=== PATIENT | male | born 1990 | race Caucasian/White ===

== ENCOUNTER 2024-08-11 08:09 | Outpatient (OUT) | payer OTHER, SELFPAY ==
[2024-08-11 08:42] LABS: Basophils Absolute Auto 0.1 10^3/uL (0.0-0.1); Basophils Percent Auto 0.6 % (0.2-2.0); Eosinophils Absolute Auto 0.5 10^3/uL (0.0-0.7); Eosinophils Percent Auto 5.3 % (0.9-7.0); Hematocrit 42.4 % (42.0-54.0); Hemoglobin 14.5 g/dL (14.0-18.0); Immature Granulocytes Abs Auto 0.02 10^3/uL (0.00-0.03); Immature Granulocytes Pct Auto 0.2 % (0.0-0.5); Lymphocytes Absolute Auto 2.9 10^3/uL (1.2-3.8); Lymphocytes Percent Auto 33.3 % (20.5-60.0); Mean Corpuscular HGB Conc 34.2 g/dL (29.9-35.2); Mean Corpuscular Hemoglobin 27.9 pg (25.9-34.0); Mean Corpuscular Volume 81.7 fL (80.0-94.0); Mean Platelet Volume 10.4 fL (9.5-13.5); Monocytes Absolute Auto 0.6 10^3/uL (0.3-0.8); Monocytes Percent Auto 6.4 % (1.7-12.0); Neutrophils Absolute Auto 4.7 10^3/uL (1.4-6.5); Neutrophils Percent Auto 54.2 % (43.0-75.0); Platelet Count 293 10^3/uL (150-450); Red Blood Count 5.19 10^6/uL (4.70-6.10); Red Cell Distribution Width 12.8 % (11.0-15.0); White Blood Count 8.6 10^3/uL (4.0-11.0)
[2024-08-11 08:57] LABS: Estimated Average Glucose 108 mg/dL; Glycohemoglobin A1C 5.4 % (4.5-6.2)
[2024-08-11 08:58] LABS: Alanine Aminotransferase 28 U/L (16-63); Albumin Globulin Ratio 1.2; Albumin Level 3.8 g/dL (3.4-5.0); Alkaline Phosphatase 70 U/L (46-116); Anion Gap 8.6; Aspartate Amino Transferase 16 U/L (15-37); BUN Creatinine Ratio 13.6; Bilirubin Total 0.4 mg/dL (0.2-1.0); Calcium 8.5 mg/dL (8.5-10.1); Carbon Dioxide 30.4 mmol/L (21.0-32.0); Chloride 104 mmol/L (98-107); Chol HDL Ratio 4.5; Cholesterol 139 mg/dL (<=200); Estimated GFR (African America >60 (>=60 mL/min/1.73m^2); Estimated GFR (Non-African Ame >60 (>=60 mL/min/1.73m^2); Globulin 3.1 g/dL; Glucose 99 mg/dL (74-106); HDL Cholesterol 31 mg/dL (40-60); Sodium 139 mmol/L (136-145); Total Protein 6.9 g/dL (6.4-8.2); Triglycerides 232 mg/dL (<=150); VLDL CHOLESTEROL 46.4 mg/dL
== END 2024-08-11 08:10 | disposition home or self-care (01) ==
LOC: LAB 08:13
PROVIDERS: PCP Family Medicine; Visit Provider Family Medicine
DX: Z00.00 Encounter for general adult medical examination without abnormal findings (principal)
CPT/HCPCS: 36415; 80053; 80061; 83036; 85025

== ENCOUNTER 2024-09-03 00:11 | Emergency (ER) | payer OTHER, SELFPAY ==
[2024-09-03 00:22] VITALS: BP 141/99; PULSE 83; TEMP 36.7; O2SAT 95; BMI 34.0
--- NOTE | 2024-09-03 00:41 | ED_ITS ---
[facility] HPI - Extremity Injury (Upper) General Chief Complaint: Extremity Injury, Upper Stated Complaint: RIGHT HAND INJURY Time Seen by Provider: 09/03/24 00:25 Source: patient Mode of arrival: walk-in Limitations: no limitations History of Present Illness HPI narrative: The patient is a 34-year-old male who presents to the emergency department via personal vehicle to be evaluated for right hand and right wrist pain. Prior to arrival, the patient punched a solid wood door. Patient sustained pain to the middle finger at the metacarpal phalangeal joint. And he feels pain on the dorsal side of the mid wrist. He has no history of osteoporosis or osteopenia. No history of previous injury to this extremity. Patient did not take anything for pain upon arrival. Pain is moderate in severity. It does not radiate. It is dull and achy. Manipulating the hand or the wrist makes it worse. Nothing makes it better. The patient does have sensation that is intact to every finger. The patient is right hand when it MD complaint: injury to: Reports right Onset (ago): hour(s) (1) Other injuries: Reports none Hand dominance: right Place: Reports home Severity: moderate Relieving factors: Reports none Exacerbating factors: Reports movement of extremity Context: Reports direct blow Related Data Previous Rx's ?Medication ?Instructions ?Recorded hydrocodone 5 mg-acetaminophen 325 1 tab PO Q6H PRN pa in #12 tabs 09/03/24 mg tablet Allergies Allergy/AdvReac Type Severity Reaction Status Date / Time No Known Drug Allergies Allergy Verified 09/03/24 00:25 Opioid HPI Opioid Management Most Recent Pain and Opioid Data: Last Pain Scale 6 Today, 01:38 Last ED Pain Assessment Today, 01:38 Last MAR Pain Assessment Today, 01:01 Review of Systems ROS Narrative 10 Systems were reviewed, and unless not ed in the [facility], all other systems are reviewed, unremarkable, or noncontributory. Exam Narrative Exam Narrative: Prior to examining the patient, I have washed with hospital approved and provided Antiseptic Hand News Director and have also applied gloves.? Prior to touching the patient, I asked for consent to examine the patient.? General: Alert and oriented, well nourished, mild distress. Eye: PERRL, EOMI, normal conjunctiva. HENT: Normocephalic, normal hearing, moist oral mucosa, no scleral icterus Musculoskeletal: Decreased range of motion strength secondary to limitations of pain to the right hand and right wrist. There is no gross deformities appreciated. No swelling appreciated. Exquisite tenderness to light touch to the dorsum of the wrist and the metacarpophalangeal joint of the middle finger. Skin: Skin is warm, dry and pink, no rashes or lesions. Neurologic: Awake, alert, and oriented X3, CN II-XII intact. Psychiatric: Cooperative, appropriate mood and affect.? Following the conclusion of the examination, I have washed my hands thoroughly after removing examination gloves. Constitutional Vital Signs, click to edit/add: Last Vital Signs Temp 98.0 F 09/03/24 00:22 Pulse 83 09/03/24 00:22 Resp 18 09/03/24 00:22 BP 141/99 H 09/03/24 00:22 Pulse Ox 95 09/03/24 00:22 O2 Del Method Room Air 09/03/24 00:22 Course Course Hospital Course: Patient had an ice pack applied. He was given ibuprofen 600 mg by mouth. X-ray of the right wrist and right hand were ordered. Reevaluation(s) Reevaluation #1: Patient still having a lot of pain in his hand after the x-ray has returned. The patient asked for a splint. We do not have a splint available but patient was given an Favio wrap to help support his hand. We were also able to wrap the wrist. He should take ibuprofen 600 mg every 6-8 hours to help with the inflammation. But a prescription was sent to the pharmacy should he get worse. Vital Signs Vital signs: Vital Signs Temperature 98.0 F 09/03/24 00:22 Pulse Rate 83 09/03/24 00:22 Respiratory Rate 18 09/03/24 00:22 Blood Pressure 141/99 H 09/03/24 00:22 Pulse Oximetry 95 09/03/24 00:22 Oxygen Delivery Method Room Air 09/03/24 00:22 Temperature 98.0 F 09/03/24 00:22 Pulse Rate 83 09/03/24 00:22 Respiratory Rate 18 09/03/24 00:22 Blood Pressure 141/99 H 09/03/24 00:22 Pulse Oximetry 95 09/03/24 00:22 Oxygen Delivery Method Room Air 09/03/24 00:22 MDM - Extremity Injury (Upper) MDM Narrative Medical decision making narrative: Patient is a 34-year-old male who punched a solid wooden door with his right hand. This [id number] male is presenting for right hand and right wrist pain. Differential Diagnosis Differential diagnosis: Likely sprain and strain of wrist, fracture of wrist, finger sprain, dislocation of finger, Colles' fracture and fracture of hand Medical Records Attestation: I reviewed the patient's medical records. Imaging Data Right Hand: Attestation: I personally reviewed and interpreted this imaging study as follows: My impression: There is no evidence of any fracture, dislocation, or subluxation of the right hand. This was interpreted by me for the sake of disposition. Right wrist: Attestation: I personally reviewed and interpreted this imaging study as follows: My impression: No evidence of fracture, dislocation, subluxation. The x-rays were interpreted by me for sake of disposition. Discharge Plan Discharge Chief Complaint: Extremity Injury, Upper Clinical Impression: Contusion of hand, right, Right wrist sprain Patient Disposition: Home, Self-Care Time of Disposition Decision: 02:01 Condition: Good Mode of Transportation: Private Vehicle Prescriptions / Home Meds: New hydrocodone-acetaminophen 5-325 mg tablet 1 tab PO Q6H PRN (Reason: pain) Qty: 12 0RF Print Language: Gabonese Instructions: How to Use an Elastic Bandage (ED), Contusion in Adults (ED), Wrist Sprain (ED) Additional Instructions: Thank you for trusting me with your care today. Please ice, rest, elevate, and compress your right hand and wrist. An Favio wrap will do nicely to help immobilize that. Try not to do any heavy lifting, moving, twisting or repetitive movements to this extremity. You can take anti-inflammatories such as Motrin or Advil at home and you may supplement with the analgesic medication that was prescribed for you. Referrals: Vinod Wbeb MD [Primary Care Provider, Family Practice] - 1 week Discharge Date/Time: 09/03/24 02:21
--- NOTE | 2024-09-03 00:42 | PC.NURSE ---
this patient complains of right hand and right wrist pain onset 1 hour prior to arrival to this er dept. this patient add that he punched a wooded door
[2024-09-03] MEDS: IBUPROFEN 600 MG TABLET PO (01:01)
--- NOTE | 2024-09-03 02:22 | PC.NURSE ---
i gave this patient verbal and written discharge orders along with 1 e-script and this patient voices yes to understanding these. at time of discharge this patient voices no concerns and shows no sign s of distress. i instructed this patient not to operate a automobile, machine or go to work while taken this pain medication, also take a stool soften while taken this pain medication. this patient said ok' to understanding these instruction while taken the pain medication
== END 2024-09-03 02:21 | disposition home or self-care (01) ==
PROVIDERS: Emergency Provider Emergency Medicine; PCP Family Medicine
DX: S60.221A Contusion of right hand, initial encounter (principal); S63.501A Unspecified sprain of right wrist, initial encounter; W22.09XA Striking against other stationary object, initial encounter
CPT/HCPCS: 73110; 73130; 99284